=== PATIENT | female | born 1985 | race Caucasian/White ===

== ENCOUNTER 2018-01-21 19:28 | Emergency (ER) | payer OTHER ==
[~2018-01-21] VITALS: Ht 177.8 cm; Wt 107.0 kg
[~2018-01-21 19:28] MED LIST: BREAST PUMP MC; CIPRO500 MG PO; ENDOCET 5-3251 EACH PO; FIBER GUMMIES2.5 GM PO; FLOMAX0.4 MG PO; IBUPROFEN800 MG PO; MOTRIN800 MG PO; NATALCARE RX1 TABLET PO; PERCOCET 5/31 TABLET PO; PHENERGAN25 MG PR; PRENATAL TABLE1 EAC3 PO; ZOFRAN4 MG PO; ZOLOFT25 MG PO
[2018-01-21 20:52] LABS: CHLORIDE 104 mEq/L (99-109); POTASSIUM 3.6 mEq/L (3.7-5.4); SODIUM 139 mEq/L (136-147)
[2018-01-21 20:53] LABS: GLUCOSE 107 mg/dL (70-99)
[2018-01-21 20:57] LABS: CREATININE 0.7 mg/dL (0.6-1.3); GFR ESTIMATE (CALCULATED) > 59 mL/min/
[2018-01-21 20:58] LABS: UREA NITROGEN (BUN) 12 mg/dL (9-23)
[2018-01-21 21:16] LABS: HEMATOCRIT 35.9 % (36.0-46.0); HEMOGLOBIN 11.8 G/DL (11.9-15.5); MCHC 32.9 G/DL (30.0-36.0); MCV 85.1 FL (83-99); PLATELET COUNT 276 K/uL (156-360); RBC DIS.WIDTH-CV 13.5 % (11.8-14.6); RBC DIS.WIDTH-SD 42.5 % (39-53); RED BLOOD COUNT 4.22 M/uL (3.80-5.20); WHITE BLOOD COUNT 8.6 K/uL (4.1-10.2)
[2018-01-21] MEDS ORDERED: MOTRIN600 MG PO (22:57)
[2018-01-21] MEDS ORDERED: COLCHICINE0.6 M1 PO (22:57)
[2018-01-21] MEDS ORDERED: NORCO 5/3251 TABLET PO (22:57)
[2018-01-21 23:13] VITALS: BP 124/65
[2018-01-26] MEDS ORDERED: PREDNISONE20 MG PO (22:46)
== END 2018-01-21 23:13 | disposition home or self-care (01) ==
LOC: EME 19:28
PROVIDERS: Physician Assistant
DX: M10.071 Idiopathic gout, right ankle and foot (principal); M10.072 Idiopathic gout, left ankle and foot; Z91.040 Latex allergy status
CPT/HCPCS: 80048; 85027; 99281; 99284

== ENCOUNTER 2018-01-23 07:31 | Emergency (ER) | payer OTHER ==
[~2018-01-23] VITALS: Ht 177.8 cm; Wt 104.6 kg
[~2018-01-23 07:31] MED LIST changes: +COLCHICINE0.6 M1 PO; +MOTRIN600 MG PO; +NORCO 5/3251 TABLET PO
[2018-01-23 08:22] LABS: BASOPHIL (%) 0.4 % (0-1); EOSINOPHIL (%) 1.1 % (0-5); EOSINOPHIL COUNT 0.1 K/uL (0-0.3); HEMOGLOBIN 12.5 G/DL (11.9-15.5); IMMATURE GRANULOCYTE (%) 0.1 % (0.0-0.7); LYMPHOCYTE (%) 15.4 % (15-42); LYMPHOCYTE COUNT 1.1 K/uL (1.0-2.8); MCH 27.8 PG (29.0-34.0); MCHC 32.9 G/DL (30.0-36.0); MCV 84.6 FL (83-99); MONOCYTE (%) 8.5 % (3-12); MONOCYTE COUNT 0.6 K/uL (0-0.8); NEUTROPHIL (%) 74.5 % (45-76); NEUTROPHIL COUNT 5.4 K/uL (1.8-6.4); PLATELET COUNT 289 K/uL (156-360); RBC DIS.WIDTH-CV 13.2 % (11.8-14.6); RBC DIS.WIDTH-SD 40.9 % (39-53); RED BLOOD COUNT 4.49 M/uL (3.80-5.20); WHITE BLOOD COUNT 7.2 K/uL (4.1-10.2)
[2018-01-23 08:46] LABS: CHLORIDE 105 mEq/L (99-109); POTASSIUM 4.1 mEq/L (3.7-5.4); SODIUM 140 mEq/L (136-147)
[2018-01-23 08:48] LABS: GLUCOSE 96 mg/dL (70-99)
[2018-01-23 08:52] LABS: CREATININE 0.7 mg/dL (0.6-1.3); GFR ESTIMATE (CALCULATED) > 59 mL/min/
[2018-01-23 08:53] LABS: UREA NITROGEN (BUN) 11 mg/dL (9-23)
[2018-01-23 08:54] LABS: URIC ACID 4.2 mg/dL (3.1-9.2)
[2018-01-23 09:00] LABS: QUANTITATIVE HCG < 4.0 MIU/ML
[2018-01-23] MEDS ORDERED: INDOCIN50 MG PO (09:36)
[2018-01-23] MEDS ORDERED: COLCHICINE0.6 M1 PO (09:36)
[2018-01-23 11:03] VITALS: BP 107/67
[2018-01-26] MEDS ORDERED: PREDNISONE20 MG PO (22:46)
== END 2018-01-23 11:08 | disposition home or self-care (01) ==
LOC: EME 07:31
PROVIDERS: Nurse Practitioner Family
DX: M10.072 Idiopathic gout, left ankle and foot (principal); M10.071 Idiopathic gout, right ankle and foot; Z87.440 Personal history of urinary (tract) infections; Z87.891 Personal history of nicotine dependence; Z91.040 Latex allergy status
CPT/HCPCS: 80048; 84550; 84702; 85025; 99281; 99284